=== PATIENT | male | born 1955 | race Two or more races ===

== ENCOUNTER → 2018-07-10 | Emergency (ER) | payer OTHER ==
[~2018-07-10] VITALS: Ht 170.2 cm; Wt 86.2 kg
[~2018-07-10] MED LIST: CIPRO500 MG PO; COZAAR50 MG PO; KETO10TA2 PO; NIFE60TA3 PO; ORPH100T PO; SILVADENE20 GM TOP; TOPROL XL25 M1
== END | disposition home or self-care (01) ==
LOC: ER 10:12
DX: N49.2 Inflammatory disorders of scrotum (principal)

== ENCOUNTER 2018-07-13 15:01 | Outpatient (CLI) | payer OTHER ==
[2018-07-17] MEDS ORDERED: DUI500 (18:17)
== END 2018-07-13 18:32 | disposition home or self-care (01) ==
LOC: LAB 15:01
DX: L02.838 Carbuncle of other sites (principal); Z72.51 High risk heterosexual behavior; A54.01 Gonococcal cystitis and urethritis, unspecified; R31.9 Hematuria, unspecified

== ENCOUNTER 2025-02-01 09:33 | Emergency (ER) | payer OTHER ==
[~2025-02-01] VITALS: Ht 170.2 cm; Wt 81.6 kg
[~2025-02-01 09:33] MED LIST changes: +DUI500
[2025-02-01] MEDS ORDERED: CEFTRIAXONE SODIUM 1,000 MG VIAL IM ONE (11:30)
[2025-02-01] MEDS ORDERED: TAMSULOSIN HCL 0.4 MG CAP PO ONE ×2 (11:30→11:41)
[2025-02-01] MEDS ORDERED: PHENAZOPYRIDINE HCL 100 MG TABLET PO ONE ×2 (11:30→11:41)
[2025-02-01] MEDS ORDERED: FAMOtidine 10 MG/ML (4ML VIAL) IV ONE (11:30)
[2025-02-01] MEDS ORDERED: KETOROLAC TROMETHAMINE 60 MG VIAL IM ONE ×2 (11:30→11:41)
[2025-02-01] MEDS ORDERED: LIDOCAINE HCL 1% 10ML VIAL ONE (11:41)
[2025-02-01] MEDS ORDERED: FAMOTIDINE/PF 20 MG/2 ML VIAL ONE (11:42)
[2025-02-01] MEDS ORDERED: CEFTRIAXONE SODIUM 1,000 MG VIAL ONE (11:42)
[2025-02-01 12:45] LABS: BASO % 0.4 % (0.1-1.2); EOS # 0.06 (0.04-0.54); EOS % 0.4 % (0.7-7.0); HEMATOCRIT 37.6 % (40.1-51.0); HEMOGLOBIN 12.9 g/dL (13.7-17.5); LYMPH # 0.82 (1.18-3.74); LYMPH % 5.9 % (19.3-53.1); MEAN CORPUSCULAR HEMOGLOBIN 30.3 pg (25.6-32.2); MONO % 7.1 % (4.7-12.5); NEUT % 85.7 % (34.0-71.1); PLATELET COUNT 243 K/uL (163-369); RED BLOOD COUNT 4.26 M/uL (4.63-6.08); RED CELL DISTRIBUTION WIDTH 12.5 % (11.6-14.4)
[2025-02-01 13:23] LABS: PH,URINE 5.5 (5.0-8.0); URINE APPEARANCE Cloudy; URINE BILIRRUBIN Negative (NEGATIVE); URINE BLOOD Small; URINE COLOR Yellow; URINE LEUKOCYTE Small; URINE NITRATE Positive; URINE PROTEIN 30 (NEGATIVE)
[2025-02-01 13:28] LABS: URINE EPITHELIAL CELLS 7.9 uL (0.0-38.8); URINE WBC 461.6 uL (0.0-23.2)
[2025-02-01 13:29] LABS: COVID-19 AG NEGATIVE (NEGATIVE)
[2025-02-01 13:30] LABS: INFLUENZA A AG NEGATIVE (NEGATIVE); INFLUENZA B AG NEGATIVE (NEGATIVE)
[2025-02-01 13:31] LABS: INR 1.09; PARTIAL THROMBOPLASTIN TIME 28.7 SECONDS (22.0-34.0); PROTHROMBIN TIME 11.8 SECONDS (9.0-11.5)
[2025-02-01 13:35] LABS: URINE BACTERIA > 9821.5 uL (0.0-1933); URINE CAST 0.14 uL (0.0-1.40); URINE GLUCOSE 100 MG/DL (NEGATIVE); URINE KETONE 40 (NEGATIVE)
[2025-02-01 13:55] LABS: ALBUMIN 3.9 gm/dL (3.4-5.0); BILIRUBIN TOTAL 0.67 mg/dL (0.3-1.2); CALCIUM 9.6 mg/dL (8.5-10.1); CREATININE SERUM 0.97 mg/dL (0.70-1.30); GFR 77.2; GLOBULINA 4.4 G/DL (2.4-3.5); POTASSIUM 3.42 mEq/L (3.5-5.1); TOTAL PROTEIN 8.3 gm/dL (6.4-8.2)
[2025-02-01] MEDS ORDERED: METRONIDAZOLE500 MG PO (14:08)
[2025-02-01] MEDS ORDERED: NORFLEX100MG PO (14:08)
[2025-02-01] MEDS ORDERED: TAMS0.4C PO (14:08)
[2025-02-01] MEDS ORDERED: PROTONIX40 MG PO (14:08)
[2025-02-01] MEDS ORDERED: CIPRO500 MG PO (14:08)
== END 2025-02-01 14:39 | disposition home or self-care (01) ==
LOC: ER 09:33
PROVIDERS: General Practice
DX: N39.0 Urinary tract infection, site not specified (principal); R30.0 Dysuria; R10.9 Unspecified abdominal pain; I10 Essential (primary) hypertension; I25.10 Atherosclerotic heart disease of native coronary artery without angina pectoris; F17.210 Nicotine dependence, cigarettes, uncomplicated; Z20.822 Contact with and (suspected) exposure to COVID-19; N20.0 Calculus of kidney; K57.30 Diverticulosis of large intestine without perforation or abscess without bleeding
CPT/HCPCS: 36415; 74176; 96365; 96372; 99284; J0696; J1885; J3490